=== PATIENT | male | born 1965 ===

== ENCOUNTER 2019-01-08 10:13 | Emergency (ER) | payer SELFPAY ==
[2019-01-08] MEDS ORDERED: LIDOCAINE VISCOUS 2% 15 ML ORAL LIQD PO ONE (11:36)
[2019-01-08 12:06] LABS: Basophils # (Auto) 0.1 K/mm3 (0.0-0.1); Basophils % (Auto) 0.8 % (0.0-1.8); Eosinophils # (Auto) 0.1 K/mm3 (0.0-0.4); Eosinophils % (Auto) 0.8 % (0.0-4.3); Hematocrit 42.5 % (35.5-45.6); Hemoglobin 14.7 gm/dl (11.8-15.2); Lymphocytes # (Auto) 1.5 K/mm3 (1.2-5.4); Lymphocytes % (Auto) 17.7 % (13.4-35.0); Mean Corpuscular HGB Conc 35 % (32-34); Mean Corpuscular Volume 89 fl (84-94); Monocytes # (Auto) 0.7 K/mm3 (0.0-0.8); Monocytes % (Auto) 9.1 % (0.0-7.3); Platelet Count 262 K/mm3 (140-440)
[2019-01-08 12:26] LABS: Alanine Aminotransferase 25 units/L (7-56); Albumin 4.8 g/dL (3.9-5); BUN/Creatinine Ratio 38; Blood Urea Nitrogen 30 mg/dL (9-20); Calcium 9.6 mg/dL (8.4-10.2); Hemolysis Index 30
--- NOTE | 2019-01-08 13:04 | XRay Report ---
Soft tissue neck. 01/08/2019. HISTORY: Ingested foreign body. FINDINGS: The soft tissues and bones are unremarkable. No ingested foreign body is identified. Signer Name: Celso Antonio MD Signed: 01/08/2019 1:00 PM Workstation Name: [id number]
--- NOTE | 2019-01-08 13:30 | Emergency Department Report ---
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 He is now complaining of of throat pain. He is accompanied by family. -: Sudden Location: mouth Radiation: non-radiation Quality: dull Consistency: constant Improves with: none Worsens with: none Associated Symptoms: other (abdominal pain ) Treatments Prior to Arrival: none - Related Data Allergies Allergy/AdvReac Type Severity Reaction Status Date / Time No Known Allergies Allergy Unverified 01/08/19 10:29 ED Review of Systems ROS: Stated complaint: FERMÍN Other details as noted in HPI Comment: All other systems reviewed and negative ENT: throat pain, other (foreign body sensation ) Gastrointestinal: abdominal pain ED Past Medical Hx - Past Medical History Previous Medical History?: Yes 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 Absent: respiratory distress - Cardiovascular Cardiovascular Exam: Present: regular rate - GI/Abdominal GI/Abdominal exam: Present: soft, normal bowel sounds. Absent: distended, tenderness, guarding - Rectal Rectal exam: Absent: deferred - Extremities Exam Extremities exam: Present: normal inspection. Absent: pedal edema - Back Exam Back exam: Present: normal inspection - Neurological Exam Neurological exam: Present: alert, other (speech impairement from prior head injury) - Psychiatric Psychiatric exam: Present: anxious - Skin Skin exam: Present: warm, dry, intact ED Course Vital Signs 01/08/19 01/08/19 01/08/19 10:26 10:28 12:26 Temperature 98.6 F Pulse Rate 102 H Respiratory 22 8 L Rate Blood Pressure 121/96 Blood Pressure [Left] O2 Sat by Pulse 99 Oximetry 01/08/19 15:32 Temperature Pulse Rate 82 Respiratory 18 Rate Blood Pressure Blood Pressure 118/75 [Left] O2 Sat by Pulse 99 Oximetry ED Medical Decision Making - Lab Data Result diagrams: 01/08/19 11:37 01/08/19 11:37 - Radiology Data Radiology results: report reviewed X-ray soft tissue neck FINDINGS: The soft tissues and bones are unremarkable. No ingested foreign body is identified. - Medical Decision Making Patient is a 53-year-old male presented to the ER after having sudden onset of foreign body sensation in his throat. He then became anxious and started complaining of difficulty breathing and abdominal pain he denies chest pain nausea and vomiting. Workup consisting of blood work.ua and x-ray of soft tissue of his neck were all within normal limits. Patient was given viscous lidocaine he passed a swallow test. Neg rapid strep. Reports feeling better. Critical care attestation.: If time is entered above; I have spent that time in minutes in the direct care of this critically ill patient, excluding procedure time. ED Disposition Clinical Impression: Throat pain in adult Disposition: DC-01 TO HOME OR SELFCARE Is pt being admited?: No Does the pt Need Aspirin: No Condition: Stable Additional Instructions: Follow up with your doctor in 2-3 days. Return to ER for worsening symptoms fever difficulty breathing. Your strep test was negative. The X-ray of your neck showed no acute findings. Warm salt water gargles 3 times daily Referrals: CHIO ROMERO MD [Primary Care Provider] - 3-5 Days Time of Disposition: 15:00
[2019-01-08 14:15] LABS: Bilirubin,Urine Negative (Negative); Blood,Urine Negative (Negative); Color,Urine Yellow (Yellow); PH,Urine 8.5 (5.0-7.0)
[2019-01-08 14:16] LABS: RBC,Urine < 1.0 /HPF (0.0-6.0); WBC,Urine < 1.0 /HPF (0.0-6.0)
[2019-01-08 15:35] VITALS: BP 118/75
== END 2019-01-08 15:38 | disposition home or self-care (01) ==
LOC: ED 10:13
DX: R07.0 Pain in throat (principal); F41.9 Anxiety disorder, unspecified; R13.10 Dysphagia, unspecified; R10.9 Unspecified abdominal pain; F17.200 Nicotine dependence, unspecified, uncomplicated; F10.10 Alcohol abuse, uncomplicated
CPT/HCPCS: 36415; 70360; 80053; 81001; 83690; 85025; 87116; 87430

== ENCOUNTER 2020-09-09 20:55 | Inpatient (IN) | payer OTHER ==
[2020-09-09 21:54] LABS: Basophils # (Auto) 0.1 K/mm3 (0.0-0.1); Basophils % (Auto) 0.5 % (0.0-1.8); Hematocrit 47.2 % (35.5-45.6); Lymphocytes # (Auto) 1.5 K/mm3 (1.2-5.4); Mean Corpuscular HGB Conc 34 % (32-34); Mean Corpuscular Volume 88 fl (84-94); Monocytes # (Auto) 1.2 K/mm3 (0.0-0.8); Monocytes % (Auto) 8.9 % (0.0-7.3); Platelet Count 299 K/mm3 (140-440); Red Blood Count 5.34 M/mm3 (3.65-5.03); Red Cell Distribution Width 13.7 % (13.2-15.2)
[2020-09-09 22:14] LABS: Alanine Aminotransferase 28 units/L (7-56); Albumin 4.9 g/dL (3.9-5); BUN/Creatinine Ratio 16; Blood Urea Nitrogen 51 mg/dL (9-20); Calcium 9.2 mg/dL (8.4-10.2); Hemolysis Index 50
--- NOTE | 2020-09-09 23:25 | XRay Report ---
CHEST 1 VIEW 09/09/2020 10:13 PM INDICATION / CLINICAL INFORMATION: chest pain. COMPARISON: None available. FINDINGS: SUPPORT DEVICES: None. HEART / MEDIASTINUM: No significant abnormality. LUNGS / PLEURA: No significant pulmonary abnormality. No significant pleural effusion. No pneumothora x. ADDITIONAL FINDINGS: No significant additional findings. IMPRESSION: 1. No acute abnormality of the chest. Signer Name: Jordan Lindsay MD Signed: 09/09/2020 11:20 PM Workstation Name: [id number]
[2020-09-10] MEDS ORDERED: KETOROLAC 30 MG/1 ML INJ IV ONE (04:22)
[2020-09-10] MEDS ORDERED: ONDANSETRON 4 MG/2 ML INJ IV ONE (04:22)
[2020-09-10] MEDS ORDERED: KETOROLAC 30 MG/1 ML INJ ONE (04:22)
[2020-09-10] MEDS ORDERED: ONDANSETRON 4 MG/2 ML INJ ONE (04:23)
[2020-09-10] MEDS ORDERED: SODIUM CHLORIDE 0.9% 1000 ML 1,000 ML IV ONE (04:40)
[2020-09-10] MEDS ORDERED: MORPHINE 4 MG/1 ML INJ IV ONE (04:52)
[2020-09-10] MEDS ORDERED: D5W/LACTATED RINGERS 1,000 ML IV SCH (06:00)
--- NOTE | 2020-09-10 06:00 | Cat Scan Report ---
CT ABDOMEN AND PELVIS WITHOUT CONTRAST INDICATION / CLINICAL INFORMATION: Left flank pain. TECHNIQUE: Axial CT images were obtained through the abdomen and pelvis without IV contrast. All CT scans at [facility] location are performed using CT dose reduction for ALARA by means of automated exposure control. COMPARISON: None available. FINDINGS: Motion artifact limits portions of this study. LOWER CHEST: There is an uncomplicated moderate hiatal hernia. No other significant abnormality. LIVER: No significant abnormality. GALLBLADDER: Cholelithiasis without evidence of acute cholecystitis. BILE DUCTS: No significant abnormality. PANCREAS: No significant abnormality. SPLEEN: No significant abnormality. ADRENALS: No significant abnormality. RIGHT KIDNEY / URETER: No significant abnormality. LEFT KIDNEY / URETER: No significant abnormality. STOMACH / SMALL BOWEL: No other significant abnormality of the stomach. No significant abnormality of the small bowel. COLON: No significant abnormality. APPENDIX: No significant abnormality. PERITONEUM: No free fluid. No free air. No fluid collection. LYMPH NODES: No significant adenopathy. AORTA / ARTERIES: Normal caliber of the aorta with mild aortoiliac atherosclerosis. IVC / VEINS: No significant abnormality. URINARY BLADDER: No significant abnormality. REPRODUCTIVE ORGANS: No significant abnormality. ADDITIONAL FINDINGS: None. SKELETAL SYSTEM: No significant abnormality. IMPRESSION: 1. No acute abnormality of the abdomen or pelvis. 2. Additional findings as above. Signer Name: Jrodan Lindsay MD Signed: 09/10/2020 5:56 AM Workstation Name: [id number]
--- NOTE | 2020-09-10 07:48 | Emergency Department Report ---
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 Patient states that he had been lifting heavy objects and feels that it could be his left shoulder. Patient stated that he has no nausea no vomiting. He does not drink alcohol does not smoke cigarettes or do any illicit drugs. Patient has not seen a doctor in for a while. He denies any trouble urinating. He denies any past medical history does not take any medications on a daily basis and has no known drug allergies. He does report he has been working out in the hot outside and this has affected his breathing. Patient also reports that he has pain in his stomach and it feels like it is being stretched. Patient reports he is vaccinated completed 2 weeks ago. Onset/Timin -: days(s) Location: head, chest (Left side of chest), abdomen (Epigastric), upper ex tremity (Left shoulder) Severity scale (0 -10): 7 Quality: aching, sharp Consistency: constant Improves with: none Worsens with: movement Associated Symptoms: chest pain, diaphoresis, shortness of breath. 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 - Surgical History Past Surgical History?: No - Social History Smoking Status: Never Smoker Substance Use Type: None - Medications Home Medications: Home Medications Medication Instructions Recorded Confirmed Last Taken Type oxyCODONE /ACETAMINOPHEN [Percocet 1 tab PO Q6H PRN #20 tablet 09/12/20 Unknown Rx 5/325 mg] ED Physical Exam - General Limitations: Other (Hard of hearing) General appearance: alert, in no apparent distress - Head Head exam: Present: atraumatic, normocephalic - Eye Eye exam: Present: normal appearance - ENT ENT exam: Present: mucous membranes dry, normal external ear exam - Respiratory Respiratory exam: Present: normal lung sounds bilaterally, chest wall tenderness - Cardiovascular Cardiovascular Exam: Present: tachycardia - GI/Abdominal GI/Abdominal exam: Present: soft, tenderness, guarding. Absent: distended - Extremities Exam Extremities exam: Present: full ROM, tenderness. Absent: pedal edema - Back Exam Back exam: Present: normal inspection - Neurological Exam Neurological exam: Present: alert, oriented X3 - Psychiatric Psychiatric exam: Present: normal affect, normal mood - Skin Skin exam: Present: warm, dry, intact, normal color. Absent: rash ED Course Vital Signs 09/09/20 09/10/20 09/10/20 21:24 09:04 15:00 Temperature 97.7 F 97.8 F Pulse Rate 106 H 93 H 90 Respiratory 18 20 20 Rate Blood Pressure 144/82 Blood Pressure 153/99 140/82 [Left] O2 Sat by Pulse 99 96 97 Oximetry - Consultations Consultation #1: 09/10/20 10:13 Spoke to my attending Dr. Yu regarding patient needing to be admitted. She reviewed her chart and agreed with admission Consultation #2: 09/10/20 10:14 Spoke to hospitalist that patient needs to be admitted hospice recommend putting patient under Dr. Ponce [place] orders has been placed. ED Medical Decision Making - Lab Data Result diagrams: 09/09/20 21:31 09/12/20 10:12 - Radiology Data Radiology results: report reviewed [facility] [address] [place] [address] Cat Scan Report Signed Patient: GEORGE SUMMERS MR#: [id number] : 1965 Acct:[id number] Age/Sex: 55 / M ADM Date: 09/09/20 Loc: ED Attending Dr: Ordering Physician: CRAIG DOBSON NP Date of Service: 09/10/20 Procedure(s): CT abdomen pelvis wo con Accession Number(s): [id number] cc: CRAIG DOBSON NP CT ABDOMEN AND PELVIS WITHOUT CONTRAST INDICATION / CLINICAL INFORMATION: Left flank pain. TECHNIQUE: Axial CT images were obtained through the abdomen and pelvis without IV contrast. All CT scans at this location are performed using CT dose reduction for ALARA by means of automated exposure control. COMPARISON: None available. FINDINGS: Motion artifact limits portions of this study. LOWER CHEST: There is an uncomplicated moderate hiatal hernia. No other sign ificant abnormality. LIVER: No significant abnormality. GALLBLADDER: Cholelithiasis without evidence of acute cholecystitis. BILE DUCTS: No significant abnormality. PANCREAS: No significant abnormality. SPLEEN: No significant abnormality. ADRENALS: No significant abnormality. RIGHT KIDNEY / URETER: No significant abnormality. LEFT KIDNEY / URETER: No significant abnormality. STOMACH / SMALL BOWEL: No other significant abnormality of the stomach. No significant abnormality of the small bowel. COLON: No significant abnormality. APPENDIX: No significant abnormality. PERITONEUM: No free fluid. No free air. No fluid collection. LYMPH NODES: No significant adenopathy. AORTA / ARTERIES: Normal caliber of the aorta with mild aortoiliac atheroscler osis. IVC / VEINS: No significant abnormality. URINARY BLADDER: No significant abnormality. REPRODUCTIVE ORGANS: No significant abnormality. ADDITIONAL FINDINGS: None. SKELETAL SYSTEM: No significant abnormality. IMPRESSION: 1. No acute abnormality of the abdomen or pelvis. 2. Additional findings as above. Signer Name: Jordan Lindsay MD Signed: 09/10/2020 5:56 AM Workstation Name: [id number] Transcribed By: AUDI Dictated By: Jordan Lindsay MD Electronically Authenticated By: Jordan Lindsay MD Signed Date/Time: 09/10/20 0556 DD/ 0552 TD/TT: [facility] [address] [place] [address] XRay Report Signed Patient: GEORGE SUMMERS MR#: [id number] : 1965 Acct:[id number] Age/Sex: 55 / M ADM Date: 09/09/20 Loc: ED Attending Dr: Ordering Physician: DAXA ACOSTA MD Date of Service: 09/09/20 Procedure(s): XR chest 1V ap Accession Number(s): [id number] cc: DAXA ACOSTA MD Fluoro Time In Minutes: CHEST 1 VIEW 09/09/2020 10:13 PM INDICATION / CLINICAL INFORMATION: chest pain. COMPARISON: None available. FINDINGS: SUPPORT DEVICES: None. HEART / MEDIASTINUM: No significant abnormality. LUNGS / PLEURA: No significant pulmonary abnormality. No significant pleural effusion. No pneumothorax. ADDITIONAL FINDINGS: No significant additional findings. IMPRESSION: 1. No acute abnormality of the chest. Signer Name: Jordan Lindsay MD Signed: 09/09/2020 11:20 PM Workstation Name: [id number] Transcribed By: AUDI Dictated By: Jordan Lindsay MD Electronically Authenticated By: Jordan Lindsay MD Signed Date/Time: 09/09/202319 DD/ 19 TD/TT: Other Patient ID My Comment(s) Study Comments [address] [address] Nuclear Medicine Report Signed Patient: GEORGE SUMMERS MR#: [id number] : 1965 Acct:[id number] Age/Sex: 55 / M ADM Date: 09/09/20 Loc: ED Attending Dr: Ordering Physician: WYATT ALEMAN Date of Service: 09/10/20 Procedure(s): NM perfusion only lung scan Accession Number(s): [id number] cc: WYATT ALEMAN NUCLEAR MEDICINE PERFUSION LUNG SCAN INDICATION / CLINICAL INFORMATION: Pleuritic chest pain. TECHNIQUE: 5.4 mCi of Tc-99m MAA were given by IV. COMPARISON: Chest radiograph dated yesterday 09/09/2020. FINDINGS: PERFUSION: No significant perfusion defects. ADDITIONAL FINDINGS: None. IMPRESSION: 1. Low probability for pulmonary embolism. Signer Name: Lm Beavers MD Signed: 09/10/2020 9:00 AM Workstation Name: [id number] Transcribed By: Dictated By: Lm Beavers MD Electronically Authenticated By: Lm Beavers MD Signed Date/Time: 09/10/20 0900 DD/ TD/TT: Study Comments [address] [address] Cat Scan Report Signed Patient: GEORGE SUMMERS MR#: [id number] : 1965 Acct:[id number] Age/Sex: 55 / M ADM Date: 09/09/20 Loc: ED Attending Dr: Ordering Physician: WYATT ALEMAN Date of Service: 09/10/20 Procedure(s): CT head/brain wo con Accession Number(s): [id number] cc: WYATT ALEMAN CT HEAD WITHOUT CONTRAST INDICATION / CLINICAL INFORMATION: fall with head injury. TECHNIQUE: All CT scans at this location are performed using CT dose reduction for ALARA by means of automated exposure control. COMPARISON: None available. FINDINGS: HEMORRHAGE: No evidence of intracranial hemorrhage or extra-axial fluid collection. EXTRA-AXIAL SPACES: Cortical sulci, sylvian fissures and basilar cisterns have an unremarkable appearance. VENTRICULAR SYSTEM: The third and lateral ventricles are of normal size and configuration. CEREBRAL PARENCHYMA: No areas of abnormal brain parenchymal attenuation are identified. There is no indication of recent infarction. MIDLINE SHIFT OR HERNIATION: There is no mass effect. CEREBELLUM / BRAINSTEM: Brainstem and cerebellum have an unremarkable appearance. MIDLINE STRUCTURES:No abnormalities of the pituitary gland or pineal region are identified. INTRACRANIAL VESSELS:No abnormalities are identified on this noncontrast head CT. ORBITS: visualized portions of the orbits have an unremarkable appearance. SOFT TISSUES of HEAD: No significant abnormality. CALVARIUM: Evaluation of bone windows reveals no abnormalities. PARANASAL SINUSES / MASTOID AIR CELLS: Visualized portions of the paranasal sinuses are free from inflammatory mucosal disease. Mastoid air cells are normally pneumatized. ADDITIONAL FINDINGS: None. IMPRESSION: 1. No significant intracranial abnormality. Signer Name: Miguel Irizarry MD Signed: 09/10/2020 8:54 AM Workstation Name: [id number] Transcribed By: Dictated By: Miguel Irizarry MD Electronically Authenticated By: Miguel Irizarry MD Signed Date/Time: 09/10/20853 DD/ TD/TT: - Medical Decision Making 55-year-old male that is deaf presents to the emergency room comp laining of left side chest pain rib pain left shoulder pain and difficulty breathing after having a fall the other day. Patient states that he had been lifting heavy objects and feels that it could be his left shoulder. Patient stated that he has no nausea no vomiting. He does not drink alcohol does not smoke cigarettes or do any illicit drugs. Patient has not seen a doctor in for a while. He denies any trouble urinating. He denies any past medical history does not take any medications on a daily basis and has no known drug allergies. He does report he has been working out in the hot outside and this has affected his breathing. Patient also reports that he has pain in his stomach and it feels like it is being stretched. Patient reports he is vaccinated completed 2 weeks ago. Patient had basic labs prior to me being involved in his case. Some mild elevation of his WBC which is most likely due to dehydration, his BUN is 51 creatinine is 3.1 last time patient was seen here January 08, 2019 creatinines 0.8. Patient has had 2 - troponin EKG is nonactionable. Elevated CK of 1860, elevated magnesium and phosphorus. CT of head is negative, V/Q negative for PE, chest x-ray is negative, CT scan of abdomen and pelvis is negative. Patient's had 1 L of normal saline 1 L of D's 5 normal saline Zofran and Toradol that was ordered by previous provider. Urinalysis is pending Spoke to my attending Dr. Yu she agrees with admission. Spoke to admissions provider bridge orders are placed. Critical Care Time: Yes (45) Critical care attestation.: If time is entered above; I have spent that time in minutes in the direct care of this critically ill patient, excluding procedure time. ED Disposition Clinical Impression: Exertional rhabdomyolysis, Acute kidney injury, Left anterior shoulder pain, Acute epigastric pain Disposition: OP ADMIT IP TO THIS HOSP Is pt being admited?: Yes Does the pt Need Aspirin: No Condition: Stable
--- NOTE | 2020-09-10 08:59 | Cat Scan Report ---
CT HEAD WITHOUT CONTRAST INDICATION / CLINICAL INFORMATION: fall with head injury. TECHNIQUE: All CT scans at this location are performed using CT dose reduction for ALARA by means of automated e xposure control. COMPARISON: None available. FINDINGS: HEMORRHAGE: No evidence of intracranial hemorrhage or extra-axial fluid collection. EXTRA-AXIAL SPACES: Cortical sulci, sylvian fissures and basilar cisterns have an unremarkable appear ance. VENTRICULAR SYSTEM: The third and lateral ventricles are of normal size and configuration. CEREBRAL PARENCHYMA: No areas of abnormal brain parenchymal attenuation are identified. There is no i ndication of recent infarction. MIDLINE SHIFT OR HERNIATION: There is no mass effect. CEREBELLUM / BRAINSTEM: Brainstem and cerebellum have an unremarkable appearance. MIDLINE STRUCTURES:No abnormalities of the pituitary gland or pineal region are identified. INTRACRANIAL VESSELS:No abnormalities are identified on this noncontrast head CT. ORBITS: visualized portions of the orbits have an unremarkable appearance. SOFT TISSUES of HEAD: No significant abnormality. CALVARIUM: Evaluation of bone windows reveals no abnormalities. PARANASAL SINUSES / MASTOID AIR CELLS: Visualized portions of the paranasal sinuses are free from inf lammatory mucosal disease. Mastoid air cells are normally pneumatized. ADDITIONAL FINDINGS: None. IMPRESSION: 1. No significant intracranial abnormality. Signer Name: Miguel Irizarry MD Signed: 09/10/2020 8:54 AM Workstation Name: [email or web address]
--- NOTE | 2020-09-10 09:04 | Nuclear Medicine Report ---
NUCLEAR MEDICINE PERFUSION LUNG SCAN INDICATION / CLINICAL INFORMATION: Pleuritic chest pain. TECHNIQUE: 5.4 mCi of Tc-99m MAA were given by IV. COMPARISON: Chest radiograph dated yesterday 09/09/2020. FINDINGS: PERFUSION: No significant perfusion defects. ADDITIONAL FINDINGS: None. IMPRESSION: 1. Low probability for pulmonary embolism. Signer Name: Lm Beavers MD Signed: 09/10/2020 9:00 AM Workstation Name: [id number]
--- NOTE | 2020-09-10 10:28 | Electrocardiograph Report ---
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
--- NOTE | 2020-09-10 11:46 | History and Physical Report ---
History of Present Illness Date of examination: 09/10/20 Date of admission: 09/10/20 10:06 Chief complaint: Chest pain History of present illness: 55-year-old male who is deaf presents to the emergency room complaining of left side chest pain, rib pain, left shoulder pain and difficulty breathing after having a fall. Patient states that he had been lifting heavy objects and that could be the reason for his symptoms. Patient stated that he has no nausea no vomiting. Patient reports his COVID vaccination completed 2 weeks ago. In the ER patient noted with elevated CPK, elevated CR, normal troponin, urine with 53 WBC. He was given IV fluid and called for admission for evaluation and Mx. - Past Medical History Previous Medical History?: Yes Additional medical history: TBI as a child - Family history no sig h/o HD, stroke, cancer - Surgical History Past Surgical History?: No - Social History Smoking Status: Never Smoker, does not drink Substance Use Type: None Review of System: limited as patient is deaf Constitutional: no fever, Ears, eyes, nose, mouth and throat: no nasal congestion, no nasal discharge, no red eye. Neck: No neck pain Cardiovascular: No chest pain, no leg swelling Respiratory: No shortness of breath, no cough, Gastrointestinal: no abdominal pain, no nausea, no vomiting Genitourinary : no dysuria, no hematuria Musculoskeletal: no joint swelling, + muscle ache Integumentary: no rash, Neurological: no weakness Hematologic/Lymphatic: no gland swelling Allergic/Immunologic: no urticaria, no angioedema. Medications and Allergies Allergies Allergy/AdvReac Type Severity Reaction Status Date / Time No Known Allergies Allergy Unverified 01/08/19 10:29 Home Medications Medication Instructions Recorded Confirmed Last Taken Type No Known Home Medications [No 09/11/20 09/11/20 Unknown History Reported Home Medications] Active Meds: Active Medications Dextrose/Lactated Ringer's (D5lr) 1,000 mls @ 200 mls/hr IV DIRECT ANNIKA Last Admin: 09/10/20 07:57 Dose: 200 mls/hr Documented by: Exam - Physical Exam Narrative exam: GENERAL: well-developed and well-nourished male lying on bed appeared to be in no discomfort. HEENT: Normocephalic. Atraumatic. No conjunctival congestion or icterus. Pat ient has moist mucous membranes. NECK: Supple. Trachea midline. CHEST/LUNGS: Clear to auscultated bilaterally, breathing nonlabored. No wheezes crackles or rhonchi. HEART/CARDIOVASCULAR: Regular in rate and rhythm. S1 and S2 positive. ABDOMEN: Abdomen is soft, nontender. Patient has normal bowel sounds. SKIN: There is no rash. Warm and dry. NEURO: No focal motor deficit. Follows command. MUSCULOSKELETAL: No joint effusion or tenderness. EXTRIMITY: No edema, no cyanosis or clubbing. PSYCH: Cooperative. - Constitutional Vitals: Temp Pulse Resp BP Pulse Ox 97.7 F 93 H 20 144/82 96 09/09/20 21:24 09/10/20 09:04 09/10/20 09:04 09/10/20 09:04 09/10/20 09:04 HEART Score - HEART Score Troponin: Troponin T < 0.010 ng/mL (0.00-0.029) 09/10/20 04:31 Results - Labs CBC & Chem 7: 09/09/20 21:31 09/10/20 15:07 Labs: Abnormal lab results 09/09/20 09/09/20 09/10/20 Range/Units 21:31 21:31 07:59 WBC 13.6 H (4.5-11.0) K/mm3 RBC 5.34 H (3.65-5.03) M/mm3 Hgb 16.0 H (11.8-15.2) gm/dl Hct 47.2 H (35.5-45.6) % Lymph % (Auto) 11.0 L (13.4-35.0) % [place] % (Auto) 8.9 H (0.0-7.3) % [place] # (Auto) 1.2 H (0.0-0.8) K/mm3 Seg Neutrophils % 79.6 H (40.0-70.0) % Seg Neutrophils # 10.8 H (1.8-7.7) K/mm3 Sodium 133 L (137-145) mmol/L Chloride 90.8 L (98-107) mmol/L Carbon Dioxide 16 L (22-30) mmol/L BUN 51 H (9-20) mg/dL Creatinine 3.1 H (0.8-1.3) mg/dL Glucose 114 H (75-100) mg/dL Phosphorus 4.90 H (2.5-4.5) mg/dL Magnesium 2.90 H (1.7-2.3) mg/dL Total Creatine Kinase 1860 H (55-170) units/L Total Protein 8.4 H (6.3-8.2) g/dL - Imaging and Cardiology Chest x-ray: report reviewed (no acute process) CT scan - abdomen: report reviewed (no acute intraabdominal process, cholelithiasis w/o cholecystitis) CT Scan - head: report reviewed (no acute findings, normal) Assessment and Plan --S/P fall CT head negative PT/OT eval, monitor vitals and orthostatic --Acute rhabdomyolysis monitor CPK, cont iv fluid --Atypical chest pain likely musculoskeletal trens troponin, serial EKG 2d echo -LONG/vasomotor nephropathy cont iv fluid, follow Cr --SIRS with possible UTI obtain urine cx, blood cx, initiate abx for now --h/o deafness and TBI: supportive care --DVT Px, heparin --GI Px, pepcid
[2020-09-10 15:41] LABS: Calcium 8.1 mg/dL (8.4-10.2)
[2020-09-10 16:08] LABS: Bilirubin,Urine NEG (Negative); Blood,Urine NEG (Negative); Color,Urine Yellow (Yellow); Hyaline Casts,Urine 74 /LPF; Mucus,Urine 3+ /HPF; Urobilinogen,Urine < 2.0 mg/dL (<2.0)
[2020-09-10] MEDS ORDERED: oxyCODONE /ACETAMINOPHEN 5-325MG TAB PO PRN (16:39)
[2020-09-10] MEDS ORDERED: ACETAMINOPHEN 325 MG TAB PO PRN (16:39)
[2020-09-10] MEDS ORDERED: ONDANSETRON 4 MG/2 ML INJ IV PRN (16:39)
[2020-09-10] MEDS ORDERED: hydrALAZINE 20 MG/1 ML INJ IV PRN (16:39)
[2020-09-10] MEDS ORDERED: MORPHINE 2 MG/1 ML INJ IV PRN (16:47)
[2020-09-10] MEDS: FAMOTIDINE 10 MG TAB PO SCH (23:48)
[2020-09-10] MEDS: HEPARIN 5,000 UNIT/1 ML VIAL SUB-Q SCH (23:48)
[2020-09-11] MEDS: HEPARIN 5,000 UNIT/1 ML VIAL SUB-Q SCH ×3 (06:28→21:44)
[2020-09-11 08:06] LABS: BUN/Creatinine Ratio 40; Blood Urea Nitrogen 32 mg/dL (9-20); Calcium 8.9 mg/dL (8.4-10.2); Hemolysis Index 1
[2020-09-11] MEDS: cefTRIAXone/NS 1 GM/50 ML 1 GM/50 ML BAG IV SCH (09:31)
[2020-09-11] MEDS: ASPIRIN EC 81 MG TAB PO SCH (09:31)
[2020-09-11] MEDS: FAMOTIDINE 10 MG TAB PO SCH ×2 (09:31→21:44)
--- NOTE | 2020-09-11 13:58 | Progress Note ---
Assessment and Plan - Patient Problems (1) Acute kidney injury Current Visit: Yes Status: Acute Plan to address problem: Secondary to prerenal azotemia. Responding to IV volume hydration. Improvement of BUN/creatinine ratio. (2) Exertional rhabdomyolysis Current Visit: Yes Status: Acute Plan to address problem: Rhabdo also improving with IV volume replacement. Creatinine has decreased to 1080. Clinically patient is improved to less body aches increased energy less fatigue. (3) Left anterior shoulder pain Current Visit: Yes Status: Acute Plan to address problem: Resolved. (4) Atypical chest pain Current Visit: Yes Status: Acute Plan to address problem: Secondary to muscle stiffness after a fall. Work-up fall patient head CT unremarkable. Alert oriented no lethargy or confusion. Chest pain resolved now. Subjective Date of service: 09/11/20 Principal diagnosis: Acute rhabdomyolysis Interval history: 85-year-old presents with atypical chest pain status post fall. Work-up ED found to have acute renal failure with rhabdomyolysis. Patient today states he feels better his chest pain is resolved shoulder pain is resolved now he only has calf pain and leg pain. Improved. Objective - Constitutional Vitals: Vital Signs - 12hr 09/11/20 09/11/20 09:39 10:39 Temperature 98.6 F Pulse Rate 101 H Respiratory 20 18 Rate Blood Pressure 137/85 O2 Sat by Pulse 94 Oximetry General appearance: Present: no acute distress, well-nourished - EENT Eyes: PERRL, EOM intact ENT: hearing intact, clear oral mucosa Ears: bilateral: normal - Neck Neck: supple, normal ROM - Respiratory Respiratory effort: normal Respiratory: bilateral: CTA - Breasts Breasts: normal - Cardiovascular Rhythm: regular Heart Sounds: Present: S1 & S2. Absent: gallop, rub Extremities: pulses intact, No edema, normal color, Full ROM - Gastrointestinal General gastrointestinal: Present: soft, non-tender, non-distended, normal bowel sounds - Genitourinary Male genitourinary: normal - Integumentary Integumentary: clear, warm, dry - Musculoskeletal Musculoskeletal: 1, strength equal bilaterally - Neurologic Neurologic: moves all extremities - Psychiatric Psychiatric: memory intact, appropriate mood/affect, intact judgment & insight - Labs CBC & Chem 7: 09/09/20 21:31 09/11/20 07:23 Labs: Abnormal lab results 07/09/10/20 09/11/20 Range/Units 15:07 Unknown 07:23 Sodium 132 L 135 L (137-145) mmol/L Chloride 96.3 L 97.5 L (98-107) mmol/L Carbon Dioxide 20 L (22-30) mmol/L BUN 49 H 32 H (9-20) mg/dL Creatinine 1.4 H D (0.8-1.3) mg/dL Glucose 109 H (75-100) mg/dL Calcium 8.1 L (8.4-10.2) mg/dL Total Creatine Kinase (55-170) units/L Urine WBC (Auto) 53.0 H (0.0-6.0) /HPF 09/11/20 Range/Units 07:23 Sodium (137-145) mmol/L Chloride (98-107) mmol/L Carbon Dioxide (22-30) mmol/L BUN (9-20) mg/dL Creatinine (0.8-1.3) mg/dL Glucose (75-100) mg/dL Calcium (8.4-10.2) mg/dL Total Creatine Kinase 1072 H (55-170) units/L Urine WBC (Auto) (0.0-6.0) /HPF HEART Score - HEART Score Troponin: Troponin T < 0.010 ng/mL (0.00-0.029) 09/11/20 11:35
[2020-09-11] MEDS: SODIUM CHLORIDE 0.9% 1000 ML 1,000 ML IV SCH (18:12)
[2020-09-12] MEDS: SODIUM CHLORIDE 0.9% 1000 ML 1,000 ML IV SCH (03:53)
[2020-09-12] MEDS: HEPARIN 5,000 UNIT/1 ML VIAL SUB-Q SCH ×2 (06:03→13:36)
--- NOTE | 2020-09-12 08:02 | Discharge Summary ---
Providers - Providers Date of Admission: 09/10/20 10:06 Date of discharge: 09/12/20 Attending physician: JASPREET DUGGAN 09/11/20 10:48 Physical Therapy Evaluation and Treat [CONS] Stat Comment: Rhabdomyolysis Reason For Exam: Eval and treat 09/11/20 11:13 Occupational Therapy Evaluate and Treat [CONS] Stat Comment: Reason For Exam: eval and treat Primary care physician: GTA Hospitalization Condition: Stable Pertinent studies: Chest x-ray unremarkable Abdominal pelvis CT unremarkable CT scan head no abnormalities Echocardiogram ejection fraction 60% Hospital course: 55-year-old male status post fall at job had atypical chest pain that resolved when he was admitted from soreness. Patient was found to have rhabdo and acute kidney injury secondary to prerenal azotemia. Patient's rhabdo corrected with volume from 1500 CPK down to 700. Patient felt better still had soreness at bilateral lower extremities. Will benefit from physical therapy at home. Renal function resolved and CPK resolved tremendously. Patient encouraged to continue volume hydration. Follow-up with primary care physician before returning to work. Disposition: - TO HOME OR SELFCARE Final Discharge Diagnosis (Prints w/discharge instructions): Acute kidney injury rhabdomyolysis - Discharge Diagnoses (1) Acute kidney injury Status: Ruled-out Comment: From prerenal azotemia (2) Exertional rhabdomyolysis Status: Acute Comment: Resolved with IV hydration. (3) Left anterior shoulder pain Status: Resolved (4) Atypical chest pain Status: Resolved Comment: Rule out ME Core Measure Documentation - Palliative Care Palliative Care/ Comfort Measures: Not Applicable - Core Measures Any of the following diagnoses?: none Exam - Constitutional Vitals: Temp Pulse Resp BP Pulse Ox 97.5 F L 76 18 140/81 97 09/12/20 03:48 09/12/20 03:48 09/12/20 03:48 09/12/20 03:48 09/12/20 03:48 General appearance: Present: no acute distress, well-nourished - EENT Eyes: Present: PERRL ENT: hearing intact, clear oral mucosa - Neck Neck: Present: supple, normal ROM - Respiratory Respiratory effort: normal Respiratory: bilateral: CTA - Cardiovascular Heart Sounds: Present: S1 & S2. Absent: rub, click - Extremities Extremities: pulses symmetrical, No edema Extremity abnormal: other (Bilateral calf soreness with palpation after fall. Will benefit from physical therapy.) Peripheral Pulses: within normal limits - Abdominal General gastrointestinal: Present: soft, non-tender, non-distended, normal bowel sounds Male genitourinary: Present: normal - Integumentary Integumentary: Present: clear, warm, dry - Musculoskeletal Musculoskeletal: gait normal, strength equal bilaterally - Psychiatric Psychiatric: appropriate mood/affect, intact judgment & insight - Neurologic Neurologic: CNII-XII intact, moves all extremities Plan Activity: fall precautions Weight Bearing Status: Weight Bear as Tolerated Diet: regular Special Instructions: physical therapy Follow up with: PRIMARY CARE,MD [Primary Care Provider] - 3-5 Days Prescriptions: oxyCODONE /ACETAMINOPHEN [Percocet 5/325 mg] 1 tab PO Q6H PRN #20 tablet PRN Reason: Pain, Moderate (4-6)
[2020-09-12] MEDS: cefTRIAXone/NS 1 GM/50 ML 1 GM/50 ML BAG IV SCH (08:57)
[2020-09-12 10:57] LABS: BUN/Creatinine Ratio 28; Blood Urea Nitrogen 22 mg/dL (9-20); Calcium 8.3 mg/dL (8.4-10.2); Hemolysis Index 4
[2020-09-12] MEDS: ASPIRIN EC 81 MG TAB PO SCH (11:18)
[2020-09-12] MEDS: FAMOTIDINE 10 MG TAB PO SCH (11:18)
[2020-09-12 13:41] VITALS: BP 116/69
--- NOTE | 2020-09-12 17:46 | Electrocardiograph Report ---
[facility] Test Date: 2020-09-11 Test Time: 07:43:25 Pat Name: GEORGE TANNER Department: Room: A3 1 Gender: M [employer] T[employer]: ES : 1965 Requested By: RACIEL CONNOLLY Order Number: [id number] Reading MD: Edward Hinojosa Measurements Intervals [place] Rate: 81 P: 48 NM: 148 QRS: 10 QRSD: 96 T: 55 QT: 397 QTc: 463 Interpretive Statements Sinus rhythm Compared to ECG 09/09/2020 21:13:02 Sinus tachycardia no longer present Electronically Signed On 09-12-2020 17:45:46 EDT by Edward Hinojosa
== END 2020-09-12 23:51 | disposition home or self-care (01) | DRG 557 ==
LOC: ED 20:55 → 3A 09-10 10:06
PROVIDERS: ADMIT Internal Medicine; ATTEND Internal Medicine
DX: M62.82 Rhabdomyolysis (principal); N17.0 Acute kidney failure with tubular necrosis; R65.10 Systemic inflammatory response syndrome (SIRS) of non-infectious origin without acute organ dysfunction; M25.512 Pain in left shoulder; R07.89 Other chest pain
CPT/HCPCS: 36415; 70450; 71045; 74176; 78580; 80048; 80053; 81001; 82550; 83735; 84100; 84484; 85025; 87040; 87086; 93005; 93306; 99291; G0378; A9540; J0696; J1644; J1885; J2270; J2405; J7030; J7121